=== PATIENT | female | born 1965 | race Caucasian/White ===

== ENCOUNTER 2017-01-06 17:25 | Emergency (ER) | payer BC ==
[~2017-01-06] VITALS: Ht 157.5 cm; Wt 90.0 kg
[~2017-01-06 17:25] MED LIST: BIOT50005 PO; CHOL100025 CHEW; FLUT50SP EACH NARE; GABA300C5 PO; LEVO.1 PO; MELO-1 PO; SLOW142T PO
[2017-01-06 17:27] VITALS: BP 124/84; PULSE 86; RESP 20; TEMP 98.5; O2SAT 98
--- NOTE | 2017-01-06 17:44 | PD ---
HPI . cough for 2 weeks causing increased right shoulder pain Chief Complaint: Respiratory Symptoms Time Seen by Provider: 17:43 Travel History International Travel<30 days: No Contact w/Intl Traveler<30days: No Traveled to known affect area: No History of Present Illness HPI 51-year-old female with rheumatoid arthritis, Riana's and fibromyalgia here with complaints of a cough for 2 weeks. She describes the cough as dry in nature. The cough has been so persistent that it's keeping her up at night and causing her to have right shoulder pain. She does usually have aches and pains in her joints, but this pain is a little bit more pronounced than usual. She ran out of her pain meds. She is also reporting decreased range of motion in her right upper extremity. She has no other complaints. PFSH Past Medical History Arthritis: Yes (CHILDHOOD ONSET OF RA) Gastrointestinal Disorders: Yes (DIVERTICULITIS) Thyroid Disease: Yes LMP: MENOPAUSAL Past Surgical History Abdominal Surgery: Yes (RESECTION DUE TO DIVERTICULITIS. PT HAS STOMA) Appendectomy: Yes Cholecystectomy: Yes Social History Alcohol Use: No Tobacco Use: No Substance Use: No Allergies-Medications (Allergen,Severity, Reaction): Coded Allergies: Penicillin (Verified Allergy, Intermediate, RAsh, itchy, 01/06/17) Uncoded Allergies: sugar, Aspartame (Allergy, Intermediate, Skin redness & itchy, 09/21/16) Reported Meds & Prescriptions Reported Meds & Active Scripts Active Prednisone 50 Mg Tab 50 Mg PO DAILY Synthroid (Levothyroxine Sodium) 100 Mcg Tab 100 Mcg PO DAILY Reported Biotin 5,000 Mcg Cap 5,000 Mcg PO Vitamin D3 (Cholecalciferol) 1,000 Unit Chew 1,000 Units CHEW DAILY Gabapentin 300 Mg Cap 300 Mg PO TID Meloxicam 15 Mg Tab 15 Mg PO DAILY Fluticasone Nasal [place] 50 Mcg/Act Naspr 100 Mcg EACH NARE BID 50 mcg/spray Review of Systems General / Constitutional: No: Fever, Chills Eyes: No: Visual changes HENT: No: Headaches, Sore Throat, Rhinorrhea, Congestion Cardiovascular: No: Chest Pain or Discomfort Respiratory: Positive: Cough, No: Shortness of Breath Gastrointestinal: No: Abdominal Pain Genitourinary: No: Dysuria Musculoskeletal: Positive: Limited ROM, Pain (right shoulder) Skin: No Rash Neurologic: No: Weakness Psychiatric: No: Depression Endocrine: No: Polydipsia Hematologic/Lymphatic: No: Easy Bruising Physical Exam Narrative GENERAL: AAO x 3, no acute distress, Well-nourished, well-developed patient. SKIN: Warm and dry. No visible rashes or bruising. HEAD: Normocephalic and atraumatic. EYES: No scleral icterus. No injection or drainage. ENT: No nasal drainage noted. Mucous membranes pink. Airway patent. Moderate postnasal drip. No frontal or maxillary sinus tenderness. TMs normal bilaterally. NECK: Supple, trachea midline. No JVD. No lymphadenopathy. CARDIOVASCULAR: Regular rate and rhythm without murmurs, gallops, or rubs. RESPIRATORY: Breath sounds equal bilaterally. No accessory muscle use. No rhonchi or rales. No wheezing. GASTROINTESTINAL: Visual inspection normal EXTREMITIES: No cyanosis or edema. Shoulder joint with limited abduction. Flexion extension at the elbow normal. Rotation normal at the glenohumeral joint. Strength is normal bilaterally in the hands. BACK: Nontender without obvious deformity. No CVA tenderness. PSYCH: AAO x 3, normal affect. Data Data Last Documented VS Vital Signs Date Time Temp Pulse Resp B/P Pulse Ox O2 Delivery O2 Flow Rate FiO2 01/06/17 17:27 98.5 86 20 124/84 98 Room Air MDM Medical Decision Making Medical Screen Exam Complete: Yes Emergency Medical Condition: Yes Medical Record Reviewed: Yes Differential Diagnosis Allergic rhinitis, sinusitis, less likely pneumonia, rotator cuff injury, chronic shoulder pain, fibromyalgia pain Narrative Course This is a 51-year-old female with history of rheumatoid arthritis, Riana's and fibromyalgia. She is presenting with complaints of a cough. I have done an examination on her and she appears to have allergic rhinitis and postnasal drip. She does have Flonase which she uses. I'll go ahead and give her a course of steroids to help reduce inflammation. I explained her that she will need to follow with her primary care provider to get on some type of medication to help reduce her postnasal drip/allergies. I suggested Singulair. In regards to her right shoulder. She does have limited abduction. This appears to be a rotator cuff injury and upon discussion is chronic in nature. She ran out of her meloxicam, therefore I have provided a few until she can see her PCP. Patient verbalized understanding of instructions, questions were answered, and thanked me for their care. I advised them if their condition worsens, please return to the nearest emergency room for further care. Diagnosis Primary Impression: Allergic rhinitis Qualified Code: J30.9 - Allergic rhinitis, unspecified allergic rhinitis trigger, unspecified rhinitis seasonality Additional Impressions: Shoulder pain, right Qualified Code: M25.511 - Chronic right shoulder pain Post-nasal drip Patient Instructions: Allergic Rhinitis (ED), General Instructions Med/Other Pt SpecificInfo: Prescription(s) given Scripts Prednisone 50 Mg Tab50 Mg PO DAILY #5 TAB Prov:Michele Soriano MD 01/06/17 Meloxicam 15 Mg Tab15 Mg PO DAILY #7 TAB Ref 0 Prov:Michele Soriano MD 01/06/17 Disposition: 01 DISCHARGE HOME Condition: Stable Niyah Kearns January 06, 2017 17:43
[2017-01-06] MEDS ORDERED: PRED50 PO (17:49)
[2017-01-06] MEDS ORDERED: MELO-1 PO (17:49)
[2017-01-10] MEDS ORDERED: GABA100C4 PO ×2 (13:10→13:29)
[2017-01-10] MEDS ORDERED: MELO7.5T4 PO ×2 (13:10→13:29)
[2017-01-10] MEDS ORDERED: BIOTCAP PO (13:10)
[2017-01-10] MEDS ORDERED: FLUT50SP EACH NARE (13:29)
[2017-02-07] MEDS ORDERED: MELO7.5T4 PO (14:54)
== END 2017-01-06 18:06 | disposition home or self-care (01) ==
LOC: NEPK 17:25
DX: J31.0 Chronic rhinitis (principal); J30.9 Allergic rhinitis, unspecified; R09.82 Postnasal drip; M25.511 Pain in right shoulder; M06.9 Rheumatoid arthritis, unspecified
CPT/HCPCS: 99283

== ENCOUNTER 2017-02-10 16:25 | Emergency (ER) | payer BC ==
[~2017-02-10] VITALS: Ht 157.5 cm; Wt 80.0 kg
[~2017-02-10 16:25] MED LIST changes: -BIOT50005 PO; +BIOTCAP PO; +GABA100C4 PO; -GABA300C5 PO; -MELO-1 PO; +MELO7.5T4 PO; +PRED50 PO; -SLOW142T PO
[2017-02-10 16:27] VITALS: BP 136/76; PULSE 85; RESP 18; TEMP 97.6; O2SAT 97
--- NOTE | 2017-02-10 16:47 | PD ---
HPI Chief Complaint: Flank/Kidney Pain Time Seen by Provider: 16:46 Travel History International Travel<30 days: No Contact w/Intl Traveler<30days: No Traveled to known affect area: No History of Present Illness HPI 51 YO female presents to the ED for evaluation of 3 day history of crampy right- sided flank and back pain. Gradual onset. Patient also endorses chills and nausea. She denies fevers, anorexia, vomiting, changes in bowel habits, dysuria. She has history of multiple abdominal surgeries including cholecystectomy, appendectomy, colon resection secondary to diverticular rupture and abscess. PFSH Past Medical History Arthritis: Yes (CHILDHOOD ONSET OF RA) Gastrointestinal Disorders: Yes (DIVERTICULITIS) Thyroid Disease: Yes (hypo) Past Surgical History Abdominal Surgery: Yes (RESECTION DUE TO DIVERTICULITIS. PT HAS STOMA) Appendectomy: Yes Cholecystectomy: Yes Tonsillectomy: Yes Social History Alcohol Use: No Tobacco Use: No Substance Use: No Allergies-Medications (Allergen,Severity, Reaction): Coded Allergies: Penicillin (Verified Allergy, Intermediate, RAsh, itchy, 01/10/17) Uncoded Allergies: sugar, Aspartame (Allergy, Intermediate, Skin redness & itchy, 09/21/16) Reported Meds & Prescriptions Reported Meds & Active Scripts Active Lortab (Hydrocodone-Acetaminophen) 5-325 Mg Tab 1-2 Tab PO Q6H PRN Meloxicam 7.5 Mg Tab 15 Mg PO DAILY Gabapentin 100 Mg Cap 300 Mg PO TID Fluticasone Nasal [place] 50 Mcg/Act Naspr 100 Mcg EACH NARE BID 50 mcg/spray Synthroid (Levothyroxine Sodium) 100 Mcg Tab 100 Mcg PO DAILY Reported Biotin 5 Mg Cap 5 Mg PO Vitamin D3 (Cholecalciferol) 1,000 Unit Chew 1,000 Units CHEW DAILY Review of Systems Except as stated in HPI: all other systems reviewed are Neg Physical Exam Narrative GENERAL: Well-nourished, well-developed obese female, tearful, in no acute distress. SKIN: Focused skin assessment warm/dry. Multiple well-healed abdominal scars without signs of infection. HEAD: Normocephalic. EYES: No scleral icterus. No injection or drainage. NECK: Supple, trachea midline. No JVD or lymphadenopathy. CARDIOVASCULAR: Regular rate and rhythm without murmurs, gallops, or rubs. RESPIRATORY: Breath sounds clear and equal bilaterally. No accessory muscle use. GASTROINTESTINAL: Abdomen soft, non-tender, nondistended. No suprapubic tenderness. Active bowel sounds. MUSCULOSKELETAL: No cyanosis, or edema. BACK: Nontender without obvious deformity. + Right-sided CVA tenderness. + Right -sided flank tenderness Data Data Last Documented VS Vital Signs Date Time Temp Pulse Resp B/P Pulse Ox O2 Delivery O2 Flow Rate FiO2 02/10/17 18:20 16 02/10/17 16:27 97.6 85 136/76 97 Orders Urinalysis - C+S If Indicated (02/10/17 16:38) Complete Blood Count With Diff (02/10/17 16:56) Comprehensive Metabolic Panel (02/10/17 16:56) Ct Abd/Pel W/O Iv Contrast (02/10/17 16:56) Iv Access Insert/Monitor (02/10/17 16:56) Ondansetron Inj (Zofran Inj) (02/10/17 17:00) Sodium Chloride 0.9% Flush (Ns Flush) (02/10/17 17:00) Hydromorphone Pf Inj (Dilaudid Pf Inj) (02/10/17 17:00) Hydromorphone Pf Inj (Dilaudid Pf Inj) (02/10/17 17:45) Sodium Chlor 0.9% 1000 Ml Inj (Ns 1000 M (02/10/17 17:45) Cath For Specimen (02/10/17 17:35) Labs Laboratory Tests Test 02/10/17 02/10/17 17:10 17:50 White Blood Count 9.8 TH/MM3 Red Blood Count 4.94 MIL/MM3 Hemoglobin 14.7 GM/DL Hematocrit 44.1 % Mean Corpuscular Volume 89.3 FL Mean Corpuscular Hemoglobin 29.8 PG Mean Corpuscular Hemoglobin 33.4 % Concent Red Cell Distribution Width 14.0 % Platelet Count 271 TH/MM3 Mean Platelet Volume 9.3 FL Neutrophils (%) (Auto) 51.8 % Lymphocytes (%) (Auto) 41.1 % Monocytes (%) (Auto) 5.8 % Eosinophils (%) (Auto) 0.6 % Basophils (%) (Auto) 0.7 % Neutrophils # (Auto) 5.1 TH/MM3 Lymphocytes # (Auto) 4.0 TH/MM3 Monocytes # (Auto) 0.6 TH/MM3 Eosinophils # (Auto) 0.1 TH/MM3 Basophils # (Auto) 0.1 TH/MM3 CBC Comment DIFF FINAL Differential Comment Sodium Level 141 MEQ/L Potassium Level 3.8 MEQ/L Chloride Level 107 MEQ/L Carbon Dioxide Level 24.0 MEQ/L Anion Gap 10 MEQ/L Blood Urea Nitrogen 8 MG/DL Creatinine 0.79 MG/DL Estimat Glomerular Filtration 76 ML/MIN Rate Random Glucose 96 MG/DL Calcium Level 9.4 MG/DL Total Bilirubin 0.2 MG/DL Aspartate Amino Transf 21 U/L (AST/SGOT) Alanine Aminotransferase 29 U/L (ALT/SGPT) Alkaline Phosphatase 107 U/L Total Protein 7.8 GM/DL Albumin 3.6 GM/DL Urine Color YELLOW Urine Turbidity CLEAR Urine pH 7.0 Urine Specific [place] 1.016 Urine Protein NEG mg/dL Urine Glucose (UA) NEG mg/dL Urine Ketones NEG mg/dL Urine Occult Blood NEG Urine Nitrite NEG Urine Bilirubin NEG Urine Urobilinogen LESS THAN 2.0 MG/DL Urine Leukocyte Esterase NEG Urine RBC LESS THAN 1 /hpf Urine Squamous Epithelial 1 /hpf Cells Urine Mucus FEW /lpf Microscopic Urinalysis Comment CULT NOT INDICATED MDM Medical Decision Making Medical Screen Exam Complete: Yes Emergency Medical Condition: Yes Differential Diagnosis Nephroureterolithiasis versus bowel instruction versus UTI versus musculoskeletal back pain versus other Narrative Course 51 YO female presents to the ED for evaluation of 3 day history of crampy right- sided flank and back pain. Gradual onset. Patient also endorses chills and nausea. She denies fevers, anorexia, vomiting, changes in bowel habits, dysuria. She has history of multiple abdominal surgeries including cholecystectomy, appendectomy, colon resection secondary to diverticular rupture and abscess. She has history of multiple abdominal surgeries including cholecystectomy, appendectomy, colon resection secondary to diverticular rupture and abscess. Vitals reviewed. Physical exam reveals a distraught, obese, female in no acute distress. She does have tenderness over the right flank and CVA. Presentation suspicious for nephroureterolithiasis. She' s been administered a liter of fluids, 0.5 mg Dilaudid IV. CBC, CMP, UA all unremarkable. CT of abdomen and pelvis reveals small ventral abdominal hernia but is otherwise unremarkable. Dr. Green evaluated the patient. Unsure the course of her flank pain but feel that she is safe for discharge with pain medications and close follow-up with the PCP. I discussed the results of workup with the patient, provided her a copy of the CT and laboratory results. She is instructed to call her primary care, Dr. Bentley tomorrow morning, return for worsening symptoms. She indicated understanding of the instructions and is agreeable to the care plan. She stable and discharged home. Diagnosis Primary Impression: Right-sided back pain Qualified Code: M54.6 - Acute right-sided thoracic back pain Additional Impression: Right flank pain Referrals: Primary Care Physician Patient Instructions: Back Pain (ED), Flank Pain (ED), General Instructions Additional Instructions: Rest, hydrate. Return to normal, gentle activity as tolerated. Take pain medication as prescribed. Do not drive while taking pain medications. Follow up with the primary care provider this week. The ED for worsening symptoms or any urgent or emergent medical condition. Med/Other Pt SpecificInfo: Prescription(s) given Scripts Hydrocodone-Acetaminophen (Lortab)5-325 Mg Tab1-2 Tab PO Q6H PRN (PAIN) #15 TAB Ref 0 Prov:Tian Joyner MD 02/10/17 Disposition: 01 DISCHARGE HOME Condition: Stable Carmen Durbin Feb 10, 2017 16:47
[2017-02-10] MEDS ORDERED: SODIUM CHLORIDE 0.9% FLUSH 10 ML FLUSH IVF PRN (17:00)
[2017-02-10] MEDS ORDERED: HYDROmorphone HCL PF 1 MG/ML VIAL IV PUSH ONE (17:00)
[2017-02-10] MEDS ORDERED: ONDANSETRON HCL 4 MG/2 ML VIAL IVP ONE (17:00)
[2017-02-10 17:28] LABS: AUTOMATED NEUTROPHIL # 5.1 TH/MM3 (1.8-7.7); BASOPHIL # 0.1 TH/MM3 (0-0.2); BASOPHIL % 0.7 % (0.0-2.0); EOSINOPHIL # 0.1 TH/MM3 (0-0.4); EOSINOPHIL % 0.6 % (0.0-4.0); HEMATOCRIT 44.1 % (35.0-46.0); HEMO FLAGS DIFF FINAL; LYMPH % 41.1 % (9.0-44.0); MEAN CELL VOLUME 89.3 FL (80.0-100.0); MEAN CORPUSCULAR HEMOGLOBIN 29.8 PG (27.0-34.0); MEAN CORPUSCULAR HGB CONC 33.4 % (32.0-36.0); MONO % 5.8 % (0.0-8.0); NEUT % 51.8 % (16.0-70.0); PLATELET COUNT 271 TH/MM3 (150-450); RED BLOOD COUNT 4.94 MIL/MM3 (4.00-5.30); WHITE BLOOD COUNT 9.8 TH/MM3 (4.0-11.0)
--- NOTE | 2017-02-10 17:36 | RADRPT ---
EXAM DATE/TIME: 02/10/2017 17:18 [facility] COMPARISON: No previous studies available for comparison. INDICATIONS : Calculi, rt flank pain.Frequent urination. ORAL CONTRAST: No oral contrast ingested. RADIATION DOSE: 8.49 CTDIvol (mGy) MEDICAL HISTORY : Hypothyroidism. SURGICAL HISTORY : Appendectomy. Cholecystectomy.Tubal ligation.Uterine ablation. ENCOUNTER: Initial ACUITY: 3 days PAIN SCALE: 9/10 LOCATION: Right flank TECHNIQUE: Volumetric scanning of the abdomen and pelvis was performed. Using automated exposure control and ad justment of the mA and/or kV according to patient size, radiation dose was kept as low as reasonably achievable to obtain optimal diagnostic quality images. DICOM format image data is available electro nically for review and comparison. FINDINGS: LOWER LUNGS: The visualized lower lungs are clear. LIVER: Homogeneous density without lesion. There is no dilation of the biliary tree. The gallbladder is abs ent. SPLEEN: Normal size without lesion. PANCREAS: Within normal limits. KIDNEYS: Normal in size and shape. There is no mass, stone, or hydronephrosis. ADRENAL GLANDS: Within normal limits. VASCULAR: There is no aortic aneurysm. BOWEL/MESENTERY: The stomach, small bowel, and colon demonstrate no acute abnormality. There is no free intraperitone al air or fluid. Surgical clips are seen around the cecum likely from prior appendectomy. Clips are s een in the upper pelvis. ABDOMINAL WALL: Patient appears be status post midline abdominal surgery. There are 3 areas of hernia seen in the mid line. The most superior hernia defect measures 2.8 cm and contains a short segment of small bowel. Im mediately inferior to this, there is a hernia/diastases with the defect measuring 3.8 cm. These are s een above the umbilicus. Below the umbilicus, there is a 4 cm defect containing a short segment of sm all bowel. No obstruction is seen. RETROPERITONEUM: There is no lymphadenopathy. BLADDER: No wall thickening or mass. REPRODUCTIVE: Within normal limits. INGUINAL: There is no lymphadenopathy or hernia. MUSCULOSKELETAL: Within normal limits for patient age. CONCLUSION: 1. 3 mild midline hernia is containing short segment of small bowel. The patient does appear to be st atus post abdominal surgery in the midline. 2. No acute abnormality is seen. 3. Renal stones are not seen. Helder Renteria MD on February 10, 2017 at 17:25 Board Certified Radiologist. This report was verified electronically.
[2017-02-10] MEDS ORDERED: SODIUM CHLOR 0.9% 1000 ML INJ 1,000 ML IV ONE (17:45)
[2017-02-10] MEDS ORDERED: HYDROmorphone HCL PF 1 MG/ML VIAL IVS ONE (17:45)
[2017-02-10 17:58] LABS: ALKALINE PHOSPHATASE 107 U/L (45-117); TOTAL BILIRUBIN ADULT 0.2 MG/DL (0.2-1.0)
[2017-02-10 18:20] VITALS: RESP 16
[2017-02-10 18:33] LABS: BLOOD, URINE NEG (NEG); COMMENT (UR) CULT NOT INDICATED; CULTURE IF INDICATED CULT NOT INDICATED; GLUCOSE,URINE NEG (NEG); KETONE, URINE NEG (NEG); MUCUS URINE FEW /lpf (OCC); NITRITE,URINE NEG (NEG); SQUAMOUS EPITHELIAL CELL URINE 1 /hpf (0-5); URINE COLOR YELLOW (YELLW/STRAW)
[2017-02-10 18:33] LABS: ALT (GPT) 29 U/L (10-53); ANION GAP 10 MEQ/L (5-15); AST (GOT) 21 U/L (15-37); BLOOD UREA NITROGEN 8 MG/DL (7-18); CHLORIDE 107 MEQ/L (98-107); GLOMERULAR FILTRATION RATE 76 ML/MIN (>89); POTASSIUM 3.8 MEQ/L (3.5-5.1); SODIUM (NA) 141 MEQ/L (136-145)
[2017-02-10] MEDS ORDERED: HYDR-3533 PO (18:43)
--- NOTE | 2017-02-10 18:56 | PD ---
Data Data Last Documented VS Vital Signs Date Time Temp Pulse Resp B/P Pulse Ox O2 Delivery O2 Flow Rate FiO2 02/10/17 18:20 16 02/10/17 16:27 97.6 85 136/76 97 Orders Urinalysis - C+S If Indicated (02/10/17 16:38) Complete Blood Count With Diff (02/10/17 16:56) Comprehensive Metabolic Panel (02/10/17 16:56) Ct Abd/Pel W/O Iv Contrast (02/10/17 16:56) Iv Access Insert/Monitor (02/10/17 16:56) Ondansetron Inj (Zofran Inj) (02/10/17 17:00) Sodium Chloride 0.9% Flush (Ns Flush) (02/10/17 17:00) Hydromorphone Pf Inj (Dilaudid Pf Inj) (02/10/17 17:00) Hydromorphone Pf Inj (Dilaudid Pf Inj) (02/10/17 17:45) Sodium Chlor 0.9% 1000 Ml Inj (Ns 1000 M (02/10/17 17:45) Cath For Specimen (02/10/17 17:35) Labs Laboratory Tests Test 02/10/17 02/10/17 17:10 17:50 White Blood Count 9.8 TH/MM3 Red Blood Count 4.94 MIL/MM3 Hemoglobin 14.7 GM/DL Hematocrit 44.1 % Mean Corpuscular Volume 89.3 FL Mean Corpuscular Hemoglobin 29.8 PG Mean Corpuscular Hemoglobin 33.4 % Concent Red Cell Distribution Width 14.0 % Platelet Count 271 TH/MM3 Mean Platelet Volume 9.3 FL Neutrophils (%) (Auto) 51.8 % Lymphocytes (%) (Auto) 41.1 % Monocytes (%) (Auto) 5.8 % Eosinophils (%) (Auto) 0.6 % Basophils (%) (Auto) 0.7 % Neutrophils # (Auto) 5.1 TH/MM3 Lymphocytes # (Auto) 4.0 TH/MM3 Monocytes # (Auto) 0.6 TH/MM3 Eosinophils # (Auto) 0.1 TH/MM3 Basophils # (Auto) 0.1 TH/MM3 CBC Comment DIFF FINAL Differential Comment Sodium Level 141 MEQ/L Potassium Level 3.8 MEQ/L Chloride Level 107 MEQ/L Carbon Dioxide Level 24.0 MEQ/L Anion Gap 10 MEQ/L Blood Urea Nitrogen 8 MG/DL Creatinine 0.79 MG/DL Estimat Glomerular Filtration 76 ML/MIN Rate Random Glucose 96 MG/DL Calcium Level 9.4 MG/DL Total Bilirubin 0.2 MG/DL Aspartate Amino Transf 21 U/L (AST/SGOT) Alanine Aminotransferase 29 U/L (ALT/SGPT) Alkaline Phosphatase 107 U/L Total Protein 7.8 GM/DL Albumin 3.6 GM/DL Urine Color YELLOW Urine Turbidity CLEAR Urine pH 7.0 Urine Specific [place] 1.016 Urine Protein NEG mg/dL Urine Glucose (UA) NEG mg/dL Urine Ketones NEG mg/dL Urine Occult Blood NEG Urine Nitrite NEG Urine Bilirubin NEG Urine Urobilinogen LESS THAN 2.0 MG/DL Urine Leukocyte Esterase NEG Urine RBC LESS THAN 1 /hpf Urine Squamous Epithelial 1 /hpf Cells Urine Mucus FEW /lpf Microscopic Urinalysis Comment CULT NOT INDICATED MDM Supervised Visit with JEROMY: Yes Narrative Course The history, exam, and medical decision-making in the associated mid-level provider note were completed with my assistance. I reviewed and agree with the findings presented. I attest that I had a [id number] encounter with the patient on the same day, and personally performed and documented my assessment and findings in the medical record. *My assessment and Findings: 51 year-old woman right flank pain. Looks uncomfortable. She is some retching. Ongoing for couple days. She looks like she was having a kidney stone. Her workups been entirely negative. Etiology of her pain is unclear. She had previous colonic rupture altered diverticulitis with an ostomy that been reversed. She may have some scarring or pain from that. There is no evidence of obstruction. She is a ventral hernia that easily reducible. She is improved now. Little uncomfortable because etiology of patient's pain is unclear, but thinks that she looks overall well, her labs are unremarkable, nothing she stay for outpatient follow-up. With a counselor to return for any worsening symptoms. Diagnosis Primary Impression: Right-sided back pain Qualified Code: M54.6 - Acute right-sided thoracic back pain Additional Impression: Right flank pain Referrals: Primary Care Physician Patient Instructions: General Instructions, Narcotic given in the ED, Flank Pain (ED), Back Pain (ED) Departure Forms: Tests/Procedures Additional Instruction: Rest, hydrate. Return to normal, gentle activity as tolerated. Take pain medication as prescribed. Do not drive while taking pain medications. Follow up with the primary care provider this week. The ED for worsening symptoms or any urgent or emergent medical condition. Scripts Hydrocodone-Acetaminophen (Lortab)5-325 Mg Tab1-2 Tab PO Q6H PRN (PAIN) #15 TAB Ref 0 Prov:Tian Joyner MD 02/10/17 Disposition: 01 DISCHARGE HOME Condition: Stable Tian Joyner MD Feb 10, 2017 18:55
== END 2017-02-10 19:00 | disposition home or self-care (01) ==
LOC: NEPD 16:25
DX: M54.6 Pain in thoracic spine (principal); R10.9 Unspecified abdominal pain
CPT/HCPCS: 74176; 80053; 81001; 85025; 96361; 96374; 96375; 99285; J1170; J2405; J7030; P9612

== ENCOUNTER 2017-12-14 18:59 | Observation (INO) | payer BC, OTHER ==
[~2017-12-14] VITALS: Ht 157.5 cm; Wt 88.0 kg
[~2017-12-14 18:59] MED LIST changes: +HYDR-3516 PO; -LEVO.1 PO; +LEVO100T5 PO; +MELO7.5T27 PO; -MELO7.5T4 PO; -PRED50 PO
[2017-12-14 19:08] VITALS: BP 135/74; PULSE 78; RESP 18; TEMP 98.1; O2SAT 99
[2017-12-14] MEDS ORDERED: ASPIRIN 81 MG CHEW TAB PO ONE (19:30)
[2017-12-14] MEDS ORDERED: methylPREDNISolone SOD SUCC 125 MG/2 ML VIAL IV PUSH ONE (19:30)
[2017-12-14] MEDS ORDERED: MORPHINE SULFATE 4 MG/ML INJ IV PUSH ONE (19:30)
[2017-12-14] MEDS ORDERED: ONDANSETRON HCL 4 MG/2 ML VIAL IV PUSH ONE (19:30)
[2017-12-14] MEDS ORDERED: SODIUM CHLORIDE 0.9% FLUSH 10 ML FLUSH IVF PRN (19:30)
[2017-12-14] MEDS ORDERED: SODIUM CHLORID 0.9% 500 ML INJ 500 ML IV ONE (19:30)
--- NOTE | 2017-12-14 19:42 | PD ---
HPI Chief Complaint: Chest Pain Time Seen by Provider: 19:18 Travel History International Travel<30 days: No Contact w/Intl Traveler<30days: No Traveled to known affect area: No History of Present Illness HPI The patient is a 52-year-old female who presents to emergency department for chest pain. The patient was walking out of the movie theater earlier tonight when she developed substernal stabbing, sharp, pleuritic chest pain that radiates down the right arm. The patient has had several episodes of similar chest pain over the last week, most episodes last only several minutes. She did complain of mild shortness of breath but denied any nausea or vomiting. She denies any diaphoresis but did feel warm per her report. The patient denies any history of coronary artery disease, hypertension, hyperlipidemia, tobacco use, or diabetes. However, the patient does have a history of juvenile rheumatoid arthritis but is currently on no medications. She does complain of intermittent joint pains, however, the chest pain radiating down her right arm is different. She denies any recent travel, hospitalizations, surgery, or history of pulmonary embolism/DVT. Symptoms are moderate. PFSH Past Medical History Arthritis: Yes (CHILDHOOD ONSET OF RA) Diminished Hearing: No Diverticulitis: Yes Gastrointestinal Disorders: Yes (DIVERTICULITIS) Medical other: Yes (fibramyalgia) Thyroid Disease: Yes (hypo) Tetanus Vaccination: < 5 Years Influenza Vaccination: No ?: Not LMP: menapause Past Surgical History Abdominal Surgery: Yes (RESECTION DUE TO DIVERTICULITIS. ) Appendectomy: Yes Cholecystectomy: Yes Tonsillectomy: Yes Social History Alcohol Use: No Tobacco Use: No Substance Use: No Allergies-Medications (Allergen,Severity, Reaction): Coded Allergies: penicillin G (Verified Allergy, Intermediate, RAsh, itchy, 12/14/17) Uncoded Allergies: sugar, Aspartame (Allergy, Intermediate, Skin redness & itchy, 09/21/16) Reported Meds & Prescriptions Reported Meds & Active Scripts Active Levothyroxine (Levothyroxine Sodium) 100 Mcg Tab 100 Mcg PO DAILY Review of Systems Except as stated in HPI: all other systems reviewed are Neg General / Constitutional: No: Fever HENT: No: Lightheadedness Cardiovascular: Positive: Chest Pain or Discomfort, No: Diaphoresis Respiratory: Positive: Shortness of Breath, Pleuritic Pain Gastrointestinal: No: Nausea, Vomiting, Abdominal Pain Neurologic: No: Dizziness Physical Exam Narrative GENERAL: Awake, alert, pleasant 52-year-old female who appears her stated age and is in no acute respiratory distress. She does appear in moderate discomfort. SKIN: Focused skin assessment warm/dry. HEAD: Atraumatic. Normocephalic. EYES: Pupils equal and round. No scleral icterus. No injection or drainage. ENT: No nasal bleeding or discharge. Mucous membranes pink and moist. NECK: Trachea midline. No JVD. CARDIOVASCULAR: Regular rate and rhythm. No murmur appreciated. Heart rate in the 70s. Palpation the chest wall does not reproduce symptoms. RESPIRATORY: No accessory muscle use. Clear to auscultation. Breath sounds equal bilaterally. GASTROINTESTINAL: Abdomen soft, non-tender, nondistended. Well-healed scar from just superior to the umbilicus inferiorly. Laparoscopic scars noted. MUSCULOSKELETAL: No obvious deformities. No clubbing. No cyanosis. No edema. NEUROLOGICAL: Awake and alert. No obvious cranial nerve deficits. Motor grossly within normal limits. Normal speech. PSYCHIATRIC: Appropriate mood and affect; insight and judgment normal. Data Data Last Documented VS Vital Signs Date Time Temp Pulse Resp B/P (MAP) Pulse Ox O2 Delivery O2 Flow Rate FiO2 12/14/17 19:08 98.1 78 18 135/74 (94) 99 Orders Orders Electrocardiogram (12/14/17 19:28) Ckmb (Isoenzyme) Profile (12/14/17 19:28) Complete Blood Count With Diff (12/14/17 19:28) Comprehensive Metabolic Panel (12/14/17 19:28) D-Dimer (12/14/17 19:28) Magnesium (Mg) (12/14/17 19:28) Prothrombin Time / Inr (Pt) (12/14/17 19:28) Act Partial Throm Time (Ptt) (12/14/17 19:28) Troponin I (12/14/17 19:28) Ecg Monitoring (12/14/17 19:28) Bilateral Bp Monitoring (12/14/17 19:28) Iv Access Insert/Monitor (12/14/17 19:28) Oximetry (12/14/17 19:28) Oxygen Administration (12/14/17 19:28) Aspirin Chew (Aspirin Chew) (12/14/17 19:30) Morphine Inj (Morphine Inj) (12/14/17 19:30) Sodium Chloride 0.9% Flush (Ns Flush) (12/14/17 19:30) Sodium Chlorid 0.9% 500 Ml Inj (Ns 500 M (12/14/17 19:30) Chest, Pa & Lat (12/14/17 19:28) Ondansetron Inj (Zofran Inj) (12/14/17 19:30) Methylprednisolone So Succ Inj (Solumedr (12/14/17 19:30) Admit Order (Ed Use Only) (12/14/17 20:50) Labs Laboratory Tests Test 12/14/17 19:35 White Blood Count 10.3 TH/MM3 Red Blood Count 4.77 MIL/MM3 Hemoglobin 14.7 GM/DL Hematocrit 42.4 % Mean Corpuscular Volume 89.0 FL Mean Corpuscular Hemoglobin 30.9 PG Mean Corpuscular Hemoglobin Concent 34.7 % Red Cell Distribution Width 14.0 % Platelet Count 284 TH/MM3 Mean Platelet Volume 8.8 FL Neutrophils (%) (Auto) 51.4 % Lymphocytes (%) (Auto) 41.3 % Monocytes (%) (Auto) 5.9 % Eosinophils (%) (Auto) 0.9 % Basophils (%) (Auto) 0.5 % Neutrophils # (Auto) 5.3 TH/MM3 Lymphocytes # (Auto) 4.2 TH/MM3 Monocytes # (Auto) 0.6 TH/MM3 Eosinophils # (Auto) 0.1 TH/MM3 Basophils # (Auto) 0.1 TH/MM3 CBC Comment DIFF FINAL Differential Comment Prothrombin Time 9.9 SEC Prothromb Time International Ratio 1.0 RATIO Activated Partial Thromboplast Time 25.8 SEC D-Dimer Quantitative (PE/DVT) LESS THAN 0.19 MG/L FEU Blood Urea Nitrogen 10 MG/DL Creatinine 0.82 MG/DL Random Glucose 114 MG/DL Total Protein 7.7 GM/DL Albumin 3.6 GM/DL Calcium Level 8.9 MG/DL Magnesium Level 1.9 MG/DL Alkaline Phosphatase 95 U/L Aspartate Amino Transf (AST/SGOT) 29 U/L Alanine Aminotransferase (ALT/SGPT) 39 U/L Total Bilirubin 0.2 MG/DL Sodium Level 142 MEQ/L Potassium Level 3.6 MEQ/L Chloride Level 104 MEQ/L Carbon Dioxide Level 28.7 MEQ/L Anion Gap 9 MEQ/L Estimat Glomerular Filtration Rate 73 ML/MIN Total Creatine Kinase 68 U/L Troponin I LESS THAN 0.02 NG/ML MDM Medical Decision Making Medical Screen Exam Complete: Yes Emergency Medical Condition: Yes Medical Record Reviewed: Yes Interpretation(s) EKG reveals normal sinus rhythm with a rate of 77. Nonspecific T-wave changes. Last Impressions Chest X-Ray 12/14/171927 Signed Impressions: Service Date/Time: Thursday, December 14, 2017 20:06 - CONCLUSION: No acute disease. Price Deluca MD Laboratory Tests Test 12/14/17 19:35 White Blood Count 10.3 TH/MM3 Red Blood Count 4.77 MIL/MM3 Hemoglobin 14.7 GM/DL Hematocrit 42.4 % Mean Corpuscular Volume 89.0 FL Mean Corpuscular Hemoglobin 30.9 PG Mean Corpuscular Hemoglobin Concent 34.7 % Red Cell Distribution Width 14.0 % Platelet Count 284 TH/MM3 Mean Platelet Volume 8.8 FL Neutrophils (%) (Auto) 51.4 % Lymphocytes (%) (Auto) 41.3 % Monocytes (%) (Auto) 5.9 % Eosinophils (%) (Auto) 0.9 % Basophils (%) (Auto) 0.5 % Neutrophils # (Auto) 5.3 TH/MM3 Lymphocytes # (Auto) 4.2 TH/MM3 Monocytes # (Auto) 0.6 TH/MM3 Eosinophils # (Auto) 0.1 TH/MM3 Basophils # (Auto) 0.1 TH/MM3 CBC Comment DIFF FINAL Differential Comment Prothrombin Time 9.9 SEC Prothromb Time International Ratio 1.0 RATIO Activated Partial Thromboplast Time 25.8 SEC D-Dimer Quantitative (PE/DVT) LESS THAN 0.19 MG/L FEU Blood Urea Nitrogen 10 MG/DL Creatinine 0.82 MG/DL Random Glucose 114 MG/DL Total Protein 7.7 GM/DL Albumin 3.6 GM/DL Calcium Level 8.9 MG/DL Magnesium Level 1.9 MG/DL Alkaline Phosphatase 95 U/L Aspartate Amino Transf (AST/SGOT) 29 U/L Alanine Aminotransferase (ALT/SGPT) 39 U/L Total Bilirubin 0.2 MG/DL Sodium Level 142 MEQ/L Potassium Level 3.6 MEQ/L Chloride Level 104 MEQ/L Carbon Dioxide Level 28.7 MEQ/L Anion Gap 9 MEQ/L Estimat Glomerular Filtration Rate 73 ML/MIN Total Creatine Kinase 68 U/L Troponin I LESS THAN 0.02 NG/ML Differential Diagnosis Differential diagnosis includes acute coronary syndrome, pericarditis, myocarditis, pulmonary embolism, costochondritis, rheumatoid arthritis exacerbation, pleural effusion, pneumonia, esophageal spasm, GERD, pancreatitis. Narrative Course IV was established, labs are drawn and sent, and the patient was placed on cardiac telemetry monitoring and continuous pulse oximetry monitoring. EKG was ordered and interpreted. Chest x-ray was obtained. Patient was administered aspirin, slight Medrol, morphine, Zofran, and IV fluids. D-dimer was sent to lab. D-dimer is less than 0.19, therefore, no indication for CT pulmonary angiogram. Troponin is less than 0.02. The patient does have substernal chest pain that radiates the right upper extremity, no previous history of CAD or multiple risk factors. Patient's pain could be secondary to rheumatoid arthritic changes versus underlying ACS. After discussion with the patient was agreed she would be a 23 hour observation to the chest pain center for serial cardiac enzymes and further evaluation by cardiology. The family is comfortable with this plan of care and disposition. Physician Communication Physician Communication The patient will be a 23 hour observation to the chest pain center for serial cardiac enzymes and further evaluation by cardiology. Diagnosis Primary Impression: Chest pain Qualified Codes: R07.9 - Chest pain, unspecified Admitting Information Admitting Physician Requests: Observation Condition: Stable Yaya Ferrara MD Dec 14, 2017 19:41
[2017-12-14 20:11] LABS: AUTOMATED NEUTROPHIL # 5.3 TH/MM3 (1.8-7.7); BASOPHIL # 0.1 TH/MM3 (0-0.2); BASOPHIL % 0.5 % (0.0-2.0); EOSINOPHIL # 0.1 TH/MM3 (0-0.4); EOSINOPHIL % 0.9 % (0.0-4.0); HEMATOCRIT 42.4 % (35.0-46.0); HEMOGLOBIN 14.7 GM/DL (11.6-15.3); LYMPH % 41.3 % (9.0-44.0); LYMPHOCYTE # 4.2 TH/MM3 (1.0-4.8); MEAN CORPUSCULAR HEMOGLOBIN 30.9 PG (27.0-34.0); MEAN CORPUSCULAR HGB CONC 34.7 % (32.0-36.0); MEAN PLATELET VOLUME 8.8 FL (7.0-11.0); MONO % 5.9 % (0.0-8.0); MONOCYTE # 0.6 TH/MM3 (0-0.9); NEUT % 51.4 % (16.0-70.0); PLATELET COUNT 284 TH/MM3 (150-450); RED BLOOD COUNT 4.77 MIL/MM3 (4.00-5.30); WHITE BLOOD COUNT 10.3 TH/MM3 (4.0-11.0)
--- NOTE | 2017-12-14 20:21 | RADRPT ---
EXAM DATE/TIME: 12/14/2017 20:06 [facility] COMPARISON: No previous studies available for comparison. INDICATIONS : Mid sternal chest pain MEDICAL HISTORY : Rheumatoid arthritis. Hypothyroidism. SURGICAL HISTORY : Appendectomy. Cholecystectomy.Tubal ligation.Uterine ablation. ENCOUNTER: Initial ACUITY: 1 day PAIN SCORE: 7/10 LOCATION: chest FINDINGS: PA and lateral views of the chest demonstrate the lungs to be symmetrically aerated without evidence of mass, infiltrate or effusion. The cardiomediastinal contours are unremarkable. Osseous structure s are intact. CONCLUSION: No acute disease. Price Deluca MD on December 14, 2017 at 20:18 Board Certified Radiologist. This report was verified electronically.
[2017-12-14 20:27] LABS: PROTHROMBIN TIME - PATIENT 9.9 SEC (9.8-11.6)
[2017-12-14 20:28] LABS: D-DIMER LESS THAN 0.19 MG/L FEU (0.00-0.50)
[2017-12-14 20:31] LABS: ALBUMIN 3.6 GM/DL (3.4-5.0); AST (GOT) 29 U/L (15-37); BICARBONATE 28.7 MEQ/L (21.0-32.0); BLOOD UREA NITROGEN 10 MG/DL (7-18); CALCIUM 8.9 MG/DL (8.5-10.1); CHLORIDE 104 MEQ/L (98-107); CREATININE 0.82 MG/DL (0.50-1.00); GLOMERULAR FILTRATION RATE 73 ML/MIN (>89); GLUCOSE,RANDOM 114 MG/DL (74-106); MAGNESIUM 1.9 MG/DL (1.5-2.5); SODIUM (NA) 142 MEQ/L (136-145)
[2017-12-14 20:37] LABS: ALKALINE PHOSPHATASE 95 U/L (45-117); ALT (GPT) 39 U/L (10-53); TOTAL BILIRUBIN ADULT 0.2 MG/DL (0.2-1.0); TOTAL PROTEIN 7.7 GM/DL (6.4-8.2); TROPONIN I LESS THAN 0.02 NG/ML (0.02-0.05)
[2017-12-14] MEDS ORDERED: ACETAMINOPHEN/HYDROcodone 325 MG/7.5 MG TAB PO PRN (21:00)
[2017-12-14] MEDS ORDERED: NITROGLYCERIN 0.4 MG SL 25 TABS/BTL SL PRN (21:00)
[2017-12-14] MEDS ORDERED: ACETAMINOPHEN 500 MG CPLT PO PRN (21:00)
[2017-12-14] MEDS ORDERED: SODIUM CHLORIDE 0.9% FLUSH 10 ML FLUSH IV FLUSH PRN (21:00)
[2017-12-14] MEDS: SODIUM CHLORIDE 0.9% FLUSH 10 ML FLUSH IV FLUSH SCH (21:00)
[2017-12-14] MEDS ORDERED: MORPHINE SULFATE 4 MG/ML INJ IV PUSH PRN (21:00)
[2017-12-14] MEDS ORDERED: ONDANSETRON HCL 4 MG/2 ML VIAL IV PUSH PRN (21:00)
[2017-12-14] MEDS: FAMOTIDINE 20 MG TAB PO SCH (21:16)
[2017-12-14 22:08] LABS: TROPONIN I LESS THAN 0.02 NG/ML (0.02-0.05)
[2017-12-14 22:16] VITALS: PULSE 71
[2017-12-14 22:27] VITALS: O2SAT 96
[2017-12-14 23:52] VITALS: PULSE 79
[2017-12-15] VITALS: BP 122/76; PULSE 74; RESP 17; TEMP 98.4; O2SAT 96
--- NOTE | 2017-12-15 00:05 | EKG ---
Date Performed: 12/14/2017 Time Performed: 19:30:28 PTAGE: 52 years EKG: Sinus rhythm MINIMAL VOLTAGE CRITERIA FOR LVH, CONSIDER NORMAL VARIANT MODERATE T-WAVE ABNORMALITY, CONSIDER ANTE RIOR ISCHEMIA ABNORMAL ECG NO PREVIOUS TRACING DOCTOR: Torres Muller Interpretating Date/Time 12/15/2017 00:03:54
[2017-12-15 02:05] LABS: TROPONIN I LESS THAN 0.02 NG/ML (0.02-0.05)
[2017-12-15 03:46] VITALS: PULSE 82
[2017-12-15 03:53] VITALS: BP 112/65; PULSE 79; RESP 17; TEMP 98.2; O2SAT 95
[2017-12-15 07:16] VITALS: PULSE 75
[2017-12-15 07:21] VITALS: BP 109/72; PULSE 79; RESP 16; TEMP 97.9; O2SAT 95
[2017-12-15] MEDS: SODIUM CHLORIDE 0.9% FLUSH 10 ML FLUSH IV FLUSH SCH (08:52)
[2017-12-15] MEDS: FAMOTIDINE 20 MG TAB PO SCH (08:52)
[2017-12-15] MEDS ORDERED: ASPIRIN 325 MG TAB PO SCH (09:00)
--- NOTE | 2017-12-15 09:24 | HHI.HP ---
HPI Primary Care Physician Joie Wolfe MD Chief Complaint Chest pain History of Present Illness 52-year-old female with history of rheumatoid arthritis and Riana's presents emergency room for further evaluation chest pain. Onset intermittent x2 weeks. Yesterday's episode occurred around 7 PM, while walking out of a movie theater. Location substernal. Characterized as a quick sharp, stabbing pain. Severity 7/10. Radiation to right shoulder and right arm. Duration 2 hours. Associated symptoms included diaphoresis, shortness of breath, hurting to take a deep breath, and certain movement made pain worse. Denied nausea or vomiting. No known precipitating or relieving factors. Endorses similar pain in the past when being diagnosed with costochondritis. Review of Systems General: No fatigue,weakness, fever, chills, or recent illness. Has been her general state of health. Endorses chronic intermittent body aches due to RA. HEENT: No SAEED, no nasal congestion or drainage, no dysphasia CV: As stated above. Currently has mild chest pain similar to presenting symptoms. No CP, pressure, palpitations, intermittent leg pain, dizziness RESP: No SOB, cough, wheeze, history of asthma, or recent URI GI: No nausea, vomiting, bowel changes, diarrhea, constipation, pain, distention , melena, or blood in the stool. No unintentional weight gain or weight loss. : No dysuria, urgency, or frequency. EXT: No lower leg edema, no paraesthesias MS: No discomfort, injury, trauma, or change in ROM NEURO: No change in memory, dizziness, difficulty with balance, LOC, motor/ sensory deficits PSYCH: No anxiety, depression, suicidal ideation SKIN: No rashes, no concerning lesions Past Family Social History Allergies: Coded Allergies: penicillin G (Verified Allergy, Intermediate, RAsh, itchy, 12/14/17) Uncoded Allergies: sugar, Aspartame (Allergy, Intermediate, Skin redness & itchy, 09/21/16) Past Medical History Rheumatoid arthritis, Riana's, hypothyroidism, diverticulitis Past Surgical History Appendectomy, bowel resection, cholecystectomy Reported Medications Reported Meds & Active Scripts Active Levothyroxine (Levothyroxine Sodium) 100 Mcg Tab 100 Mcg PO DAILY Has not been on any Rheumatoid arthritis medications in many years. Active Ordered Medications Current Medications Medications (Trade) Dose Ordered Sig/Zehra Route Start Time Stop Time Status Last Admin (NS Flush) 2 ml UNSCH PRN IVF 12/14/17 19:30 (NS Flush) 2 ml UNSCH PRN IV FLUSH 12/14/17 21:00 (NS Flush) 2 ml BID IV FLUSH 12/14/17 21:00 12/15/17 08:52 (Tylenol) 500 mg Q4H PRN PO 12/14/17 21:00 (Munday 7.5-325 Mg) 1 tab Q4H PRN PO 12/14/17 21:00 (Morphine Inj) 2 mg Q4H PRN IV PUSH 12/14/17 21:00 (Zofran Inj) 4 mg Q6H PRN IV PUSH 12/14/17 21:00 (Pepcid) 20 mg BID PO 12/14/17 21:00 12/15/17 08:52 (Nitrostat Sl) 0.4 mg Q5M PRN SL 12/14/17 21:00 (Aspirin) 325 mg DAILY PO 12/15/17 09:00 12/15/17 08:52 Family History Noncontributory for early onset cardiovascular disease. Social History No known coronary artery disease, diabetes, hyperlipidemia, hypertension. Lifelong non-smoker. Denies any alcohol or illegal drug use. . Endorses active lifestyle walking 3 miles daily. Past cardiac testing Reports normal cardiac catheterization 8 years ago in [place]. Physical Exam Vital Signs Vital Signs Date Time Temp Pulse Resp B/P (MAP) Pulse Ox O2 Delivery O2 Flow Rate FiO2 12/15/17 07:21 97.9 79 16 109/72 (84) 95 12/15/17 03:53 98.2 79 17 112/65 (81) 95 12/15/17 03:46 82 12/15/17 00:00 98.4 74 17 122/76 (91) 96 12/14/17 23:52 79 12/14/17 22:27 96 12/14/17 22:16 71 12/14/17 19:08 98.1 78 18 135/74 (94) 99 Physical Exam GENERAL: Alert WN, WD, NAD, pleasant, moderately obese female HEAD: NC, AT EYES: Sclera clear, conjunctiva without injection, pupils equal and round ENT: Mucous membranes pink and moist NECK: Supple, no masses, trachea midline CV: RRR, without murmur, rub, gallop, no JVD, S1-S2 no S3-S4. No carotid or femoral bruits. Chest wall pain reproduced with palpation. RESP: Clear lungs throughout bilateral, no crackles, wheeze, rhonchi, symmetrical chest rise, nonlabored, able to speak in full sentences ABD: Soft, NT, ND, no masses, positive bowel tones BACK: No scoliosis EXT: Pulses +2x4, no dependent edema MS: Normal tone x4 extremities, no obvious deformities, full range of motion NEURO: CN II through CN XII grossly intact, motor strength 5/5 PSYCH: A+O x3, pleasant affect, appropriate speech, mood, insight and judgment SKIN: Normal turgor, normal texture, no lesions, no rashes, brisk cap refill, even hair distribution Laboratory Laboratory Tests Test 12/14/17 19:35 12/14/17 21:25 12/15/17 01:00 White Blood Count 10.3 Red Blood Count 4.77 Hemoglobin 14.7 Hematocrit 42.4 Mean Corpuscular Volume 89.0 Mean Corpuscular Hemoglobin 30.9 Mean Corpuscular Hemoglobin Concent 34.7 Red Cell Distribution Width 14.0 Platelet Count 284 Mean Platelet Volume 8.8 Neutrophils (%) (Auto) 51.4 Lymphocytes (%) (Auto) 41.3 Monocytes (%) (Auto) 5.9 Eosinophils (%) (Auto) 0.9 Basophils (%) (Auto) 0.5 Neutrophils # (Auto) 5.3 Lymphocytes # (Auto) 4.2 Monocytes # (Auto) 0.6 Eosinophils # (Auto) 0.1 Basophils # (Auto) 0.1 CBC Comment DIFF FINAL Differential Comment Prothrombin Time 9.9 Prothromb Time International Ratio 1.0 Activated Partial Thromboplast Time 25.8 D-Dimer Quantitative (PE/DVT) LESS THAN 0.19 Blood Urea Nitrogen 10 Creatinine 0.82 Random Glucose 114 Total Protein 7.7 Albumin 3.6 Calcium Level 8.9 Magnesium Level 1.9 Alkaline Phosphatase 95 Aspartate Amino Transf (AST/SGOT) 29 Alanine Aminotransferase (ALT/SGPT) 39 Total Bilirubin 0.2 Sodium Level 142 Potassium Level 3.6 Chloride Level 104 Carbon Dioxide Level 28.7 Anion Gap 9 Estimat Glomerular Filtration Rate 73 Total Creatine Kinase 68 63 188 Troponin I LESS THAN 0.02 LESS THAN 0.02 LESS THAN 0.02 Creatine Kinase MB LESS THAN 0.5 Result Diagram: 12/14/17193412/14/171934 Imaging Last 48 hours Impressions Chest X-Ray 12/14/171927 Signed Impressions: Service Date/Time: Thursday, December 14, 2017 20:06 - CONCLUSION: No acute disease. Price Deluca MD Course EKG Normal sinus rhythm, nonspecific T-wave changes Caprini VTE Risk Assessment Caprini VTE Risk Assessment: No/Low Risk (score <= 1) Caprini Risk Assessment Model Point Value = 1 Point Value = 2 Point Value = 3 Point Value = 5 Age 41-60 Minor surgery BMI > 25 kg/m2 Swollen legs Varicose veins or History of unexplained or recurrent spontaneous Oral contraceptives or hormone replacement Sepsis (< 1 month) Serious lung disease, including pneumonia (< 1 month) Abnormal pulmonary function Acute myocardial infarction Congestive heart failure (< 1 month) History of inflammatory bowel disease Medical patient at bed rest Age 61-74 Arthroscopic surgery Major open surgery (> 45 min) Laparoscopic surgery (> 45 min) Malignancy Confined to bed (> 72 hours) Immobilizing plaster cast Central venous access Age >= 75 History of VTE Family history of VTE Factor V Leiden Prothrombin [id number] Lupus anticoagulant Anticardiolipin antibodies Elevated serum homocysteine Heparin-induced thrombocytopenia Other congenital or acquired thrombophilia Stroke (< 1 month) Elective arthroplasty Hip, pelvis, or leg fracture Acute spinal cord injury (< 1 month) Prophylaxis Regimen Total Risk Factor Score Risk Level Prophylaxis Regimen 0-1 Low Early ambulation 2 Moderate Order ONE of the following: *Sequential Compression Device (SCD) *Heparin 5000 units SQ BID 3-4 Higher Order ONE of the following medications: *Heparin 5000 units SQ TID *Enoxaparin/Lovenox 40 mg SQ daily (WT < 150 kg, CrCl > 30 mL/min) *Enoxaparin/Lovenox 30 mg SQ daily (WT < 150 kg, CrCl > 10-29 mL/min) *Enoxaparin/Lovenox 30 mg SQ BID (WT < 150 kg, CrCl > 30 mL/min) AND/OR *Sequential Compression Device (SCD) 5 or more Highest Order ONE of the following medications: *Heparin 5000 units SQ TID (Preferred with Epidurals) *Enoxaparin/Lovenox 40 mg SQ daily (WT < 150 kg, CrCl > 30 mL/min) *Enoxaparin/Lovenox 30 mg SQ daily (WT < 150 kg, CrCl > 10-29 mL/min) *Enoxaparin/Lovenox 30 mg SQ BID (WT < 150 kg, CrCl > 30 mL/min) AND *Sequential Compression Device (SCD) Assessment and Plan Assessment and Plan #1 Chest pain-admitted chest pain center. Ruled out 3 sets of EKGs, cardiac enzymes, and monitor on telemetry overnight. Seen and evaluated by Dr. Eric Sebastian. Reassurance provided discomfort appears to be musculoskeletal in nature. No further cardiac testing, reported completely normal cardiac catheterization 8 years ago. Patient agreeable to plan of care. Instructed to use 400 mg ibuprofen 3 times a day, with food, for 3 days and encouraged use of heating pad to chest wall. Follow-up with PCP. #2 History of RA-continue with plan to establish with a school manager #3 History of hypothyroidism-continue levothyroxine Farheen Villalpando Dec 15, 2017 09:24
[2017-12-15] MEDS ORDERED: LEVOTHYROXINE SODIUM 100 MCG TAB PO SCH (09:30)
[2017-12-15] MEDS ORDERED: KETOROLAC TROMETHAMINE 30 MG/ML (IVP) VIAL IV PUSH ONE (09:30)
[2017-12-15] MEDS ORDERED: IBUP1TAB5 PO (12:07)
--- NOTE | 2017-12-15 12:07 | HHI.DCPOC ---
Discharge Care Plan Diagnosis: (1) Musculoskeletal chest pain Goals to Promote Your Health * To prevent worsening of your condition and complications * To maintain your health at the optimal level Directions to Meet Your Goals Take your medications as prescribed Follow your dietary instruction Follow activity as directed Keep your appointments as scheduled Take your immunizations and boosters as scheduled If your symptoms worsen call your PCP, if no PCP go to Urgent Care Center or Emergency Room Smoking is Dangerous to Your Health. Avoid second hand smoke Call the 24-hour hour crisis hotline for domestic abuse at Farheen Villalpando Dec 15, 2017 12:07
--- NOTE | 2017-12-15 14:10 | EKG ---
Date Performed: 12/14/2017 Time Performed: 23:58:04 PTAGE: 52 years EKG: Sinus rhythm NONSPECIFIC T-WAVE ABNORMALITY BORDERLINE ECG PREVIOUS TRACING : 12/14/2017 21.22 Since previous tracing, no significant change noted DOCTOR: Eric Sebastian Interpretating Date/Time 12/15/2017 14:08:05
--- NOTE | 2017-12-15 14:16 | EKG ---
Date Performed: 12/14/2017 Time Performed: 21:22:35 PTAGE: 52 years EKG: Sinus rhythm NONSPECIFIC T-WAVE ABNORMALITY BORDERLINE ECG PREVIOUS TRACING : 12/14/2017 19.30 Since previous tracing, no significant change noted DOCTOR: Eric Sebastian Interpretating Date/Time 12/15/2017 14:14:11
== END 2017-12-15 12:37 | disposition home or self-care (01) ==
LOC: NEPE 18:59 → NEDA 20:52 → NEPFCDU 21:34
DX: R07.89 Other chest pain (principal); R06.02 Shortness of breath; M06.9 Rheumatoid arthritis, unspecified; E06.3 Autoimmune thyroiditis; E03.9 Hypothyroidism, unspecified; R94.31 Abnormal electrocardiogram [ECG] [EKG]
CPT/HCPCS: 71046; 80053; 82550; 82552; 83735; 84484; 85025; 85379; 85610; 85730; 93005; 96361; 96374; 96375; 99285; G0378; J1885; J2270; J2405; J2930; J7040

== ENCOUNTER → 2018-02-10 | Outpatient (CLI) | payer OTHER ==
[~2018-02-10] MED LIST changes: -BIOTCAP PO; -CHOL100025 CHEW; -FLUT50SP EACH NARE; -GABA100C4 PO; -HYDR-3516 PO; +IBUP1TAB5 PO; +IBUP1TAB7 PO; -MELO7.5T27 PO
[2018-02-10 12:03] LABS: AUTOMATED NEUTROPHIL # 4.3 TH/MM3 (1.8-7.7); BASOPHIL # 0.1 TH/MM3 (0-0.2); BASOPHIL % 0.8 % (0.0-2.0); EOSINOPHIL # 0.1 TH/MM3 (0-0.4); EOSINOPHIL % 1.4 % (0.0-4.0); HEMATOCRIT 43.1 % (35.0-46.0); HEMOGLOBIN 14.3 GM/DL (11.6-15.3); LYMPH % 36.5 % (9.0-44.0); LYMPHOCYTE # 2.7 TH/MM3 (1.0-4.8); MEAN CELL VOLUME 91.3 FL (80.0-100.0); MEAN CORPUSCULAR HEMOGLOBIN 30.3 PG (27.0-34.0); MEAN CORPUSCULAR HGB CONC 33.1 % (32.0-36.0); MEAN PLATELET VOLUME 8.9 FL (7.0-11.0); MONO % 2.6 % (0.0-8.0); MONOCYTE # 0.2 TH/MM3 (0-0.9); NEUT % 58.7 % (16.0-70.0); PLATELET COUNT 225 TH/MM3 (150-450); RED BLOOD COUNT 4.72 MIL/MM3 (4.00-5.30); RED CELL DISTRIBUTION WIDTH 13.9 % (11.6-17.2); WHITE BLOOD COUNT 7.4 TH/MM3 (4.0-11.0)
--- NOTE | 2018-02-10 22:16 | EKG ---
Date Performed: 02/10/2018 Time Performed: 11:59:17 PTAGE: 52 years EKG: Sinus rhythm NORMAL ECG PREVIOUS TRACING : 12/14/2017 23.58 Since the previous tracing, no significant change noted DOCTOR: Torres Muller Interpretating Date/Time 02/10/2018 22:14:59
== END ==
LOC: PHPRE 11:04
PROVIDERS: ATTEND Orthopaedic Surgery
DX: Z01.812 Encounter for preprocedural laboratory examination (principal); Z01.810 Encounter for preprocedural cardiovascular examination; M75.121 Complete rotator cuff tear or rupture of right shoulder, not specified as traumatic
CPT/HCPCS: 36415; 85025; 93005